=== PATIENT | female | born 1970 | race Asian ===

== ENCOUNTER 2020-07-26 21:28 | Emergency (ER) | payer MEDICAID ==
[~2020-07-26] VITALS: Ht 157.5 cm; Wt 56.7 kg
[2020-07-26 21:47] VITALS: BP_SYST 133
[2020-07-26] MEDS ORDERED: DIPH-TET Vacc 0.5 ML VIAL I.M. ONE (22:40)
[2020-07-26] MEDS ORDERED: DIPH-TET-PERTUS Vaccine 0.5 ML VIAL (ADACEL) I.M. ONE (22:45)
[2020-07-26] MEDS ORDERED: BACITRACIN 1 GM OINT TP ONE (22:58)
[2020-07-26 23:06] VITALS: BP_SYST 128
== END 2020-07-26 23:06 | disposition home or self-care (01) ==
LOC: SED 21:28
DX: S81.011A Laceration without foreign body, right knee, initial encounter (principal); W45.8XXA Other foreign body or object entering through skin, initial encounter; Y93.89 Activity, other specified; Y92.89 Other specified places as the place of occurrence of the external cause; Y99.8 Other external cause status
CPT/HCPCS: 90714; 99283